=== PATIENT | male | born 1980 | race Caucasian/White ===

== ENCOUNTER 2023-05-15 18:38 | Emergency (ER) | payer OTHER, SELFPAY ==
[2023-05-15 18:42] VITALS: BP 155/75
[2023-05-15] MEDS: VIBRAMYCIN 100 MG PO (21:06)
--- NOTE | 2023-05-15 21:21 | ED.SKININJ ---
HPI-Injury
General
Chief Complaint: Skin Surface Trauma
Source: patient
Exam Limitations: none
Time Seen by Provider: 05/15/23 20:14
Nursing documentation reviewed up to this point in time: agreed with
Travel History
Have you had any contact with someone who has COVID-19?: No
Do you have any symptoms of coronavirus? Fever > 100 degrees, chills, cough, shortness of breath, sore throat, loss of taste or smell, muscle aches, or headache?: No
History of Present Illness-Injury
Is this injury a work related problem?: No
Is pt an associate of [facility]?: No
Initial Injury comments:
Patient to ED to r/o FB to right index finger and left forearm. States 3 days ago he was chopping wood. Today he noticed swelling to proximal right index finger, abrasion to left forearm. Brought self to ED for eval.
Past History
Past History
ED Past Medical History: HTN and NIDDM
ED Past Surgical History: Tonsilectomy
Social History
Tobacco: Non-smoker
Alcohol: None
Drug: None
Personal:
Living: with family
Employment: Employed
Review of Systems
Review of Systems
Allergies reviewed?: Yes
All Other Systems: ROS reviewed and negative except as documented in HPI and ROS
Constitutional: Reports no symptoms
EENT: Reports no symptoms
Respiratory: Reports no symptoms
Cardiac: Reports no symptoms
ABD/GI: Reports no symptoms
Musculoskeletal: Reports no symptoms
Skin: Reports no symptoms (swelling rigth proximal index finger. abrasion left forerarm)
Neurological: Reports no symptoms
Psychiatric: Reports no symptoms
Skin Exam
Foreign Body
Left Forearm:
Foreign body is: deep
Foreign body can be visualized?: No
Right Proximal Second Finger:
Foreign body is: deep
Foreign body can be visualized?: No
Phy Exam
General Physical Exam
General Presentation: well appearing and no apparent distress
General age: appears stated age
General Skin: warm and dry
General Habitus: normal
Musculoskeletal Exam
Musculoskeletal Exam: full ROM and neuro vasc intact
Skin Exam
Skin Exam: normal color, warm/dry and no rash
Psychiatric Exam
Psychiatric Exam: normal mood/affect
Course
Orders/Labs/Results
Orders:
Orders
05/15/23 18:48
Hand, Right 3 View [CR Hand - Right Min 3 Views] Urgent
Comment: pt concerned for foreign body
Reason For Exam: swelling and pain
05/15/23 18:49
Forearm, Left 2 View [CR Forearm - Left 2 View] Urgent
Comment: possible foreign body.
Reason For Exam: pain and swelling
05/15/23 20:29
Doxycycline [Vibramycin] 100 mg PO NOW STA
Vital Signs
Initial and Last Documented VS:
Initial Vital Signs
Temp Pulse Resp BP Pulse Ox
98.9 F 78 20 155/75 99
05/15/23 18:42 05/15/23 18:42 05/15/23 18:42 05/15/23 18:42 05/15/23 18:42
Last Documented Vital Signs
Temp Pulse Resp BP Pulse Ox
98.9 F 78 20 155/75 99
05/15/23 18:42 05/15/23 18:42 05/15/23 18:42 05/15/23 18:42 05/15/23 18:42
*Radiology
Radiology exam reviewed: radiology read reviewed
*Pulse Oximetry
Patient hypoxic: no
*Critical Care Note
Total Time (30-74mins, 75-104mins- exclusive of procedures): Not Applicable
Update Note
Update Note:
Xrays reviewed. Foreign bodies noted to left foream and right index finger, both occurred 3 days ago. Finger foreign body is deep, recommend evaluation by ortho for removal. This was explained to patient. He was given name and number of ortho
for follow up. Given instruction on s/s to return to ED.
ED Attending Note
-
Portions of this chart may have been created with voice recognition software.� Occasional wrong word or��sound alike� substitutions may have occurred due to the inherent limitations of voice recognition software.
Discharge Plan
Departure
Patient Disposition: Home (Routine Discharge)
Date of Disposition: 05/15/23
Time of Disposition: 20:30
Patient with high blood pressure during this ER visit?: No
Condition: Good
Covid-19: Not Applicable
Discharge Problem:
Foreign body in skin
Instructions: Foreign Body in Skin (DC)
Prescriptions:
New
doxycycline hyclate 100 mg tablet
100 mg PO BID Qty: 14 0RF
No Action
ciprofloxacin-dexamethasone 0.3-0.1 % drops,suspension
4 drp otic (ear) BID 7 Days Qty: 7.5 0RF
Referrals:
West Jaquez MD [Active] - Tomorrow
Interventions
Interventions:
ED-Skin Assessment Last Done: 05/15/23 21:10
== END 2023-05-15 21:15 | disposition home or self-care (01) ==
LOC: EMR 18:38
PROVIDERS: EMERGENCY PHYSICIAN Emergency Medicine; FAMILY PHYSICIAN Internal Medicine
DX: S60.450A Superficial foreign body of right index finger, initial encounter (principal); S50.852A Superficial foreign body of left forearm, initial encounter; W45.8XXA Other foreign body or object entering through skin, initial encounter; R22.31 Localized swelling, mass and lump, right upper limb; S60.410A Abrasion of right index finger, initial encounter; S50.812A Abrasion of left forearm, initial encounter; I10 Essential (primary) hypertension; E11.9 Type 2 diabetes mellitus without complications
CPT/HCPCS: 99283; 73090; 73130

== ENCOUNTER 2024-01-01 15:27 | Emergency (ER) | payer OTHER, SELFPAY ==
[2024-01-01 15:30] VITALS: BP 168/94
[2024-01-01 15:53] LABS: % Basophils 0.4 % (0-2); % Eosinophils 1.5 % (0-6); % Immature Granulocytes 0.4 % (0-0.5); % Lymphocytes 21.6 % (20.5-51.1); % Monocytes 8.8 % (1.7-9.3); % Neutrophils 67.3 % (42.2-75.2); Absolute Basophils 0.1 10^3/uL (0-0.2); Absolute Eosinophils 0.2 10^3/uL (0-0.7); Absolute Immature Granulocytes 0.1 10^3/uL (0-0.05); Absolute Monocytes 1.2 10^3/uL (0.1-0.6); Absolute Neutrophils 9.2 10^3/uL (1.4-6.5); Hematocrit 43.2 % (39.0-52.0); Hemoglobin 14.8 g/dL (13.0-18.0); Mean Corp Hgb Conc. 34.3 g/dL (33.0-37.0); Mean Corpuscular Hgb 26.2 pg (27.0-31.0); Mean Corpuscular Volume 76.5 fL (80.0-94.0); Mean Platelet Volume 10.5 fL (7.4-10.4); Nucleated Red Blood Cells % 0 % (-); Platelet Count 233 10^3/uL (130-400); Red Blood Cell Count 5.65 10^6/uL (4.70-6.10); Red Cell Dist. Width 13.9 % (11.5-14.5); White Blood Cell Count 13.7 10^3/uL (4.8-10.8)
--- NOTE | 2024-01-01 15:55 | ED.GENMED ---
History of Present Illness
General
Chief Complaint: Flank Pain
Source: patient
Time Seen by Provider: 01/01/24 15:46
History of Present Illness
History of Present Illness:
43yoM with a history of hypertension, obesity, and depression presenting for evaluation of left flank pain. He woke up this morning with a headache and a stomachache. He also noticed that his urine appeared darker than usual. Around 1:30pm this
afternoon, he had an abrupt onset of severe pain in his L flank region. Pain radiates to the LLQ and L groin. Pain is associated with nausea and vomiting. He has vomited 6-7x within the past hour. He also reports cold sweats but denies any fevers.
No prior history of similar symptoms. No prior history of kidney stones.
Past History
Past History
ED Past Medical History: HTN and NIDDM
ED Past Surgical History: Tonsilectomy
Social History
Tobacco: Non-smoker
Alcohol: None
Drug: None
Personal:
Living: with family
Employment: Employed
Phy Exam
Physical Exam
Physical Exam:
Appears uncomfortable due to pain. Non-toxic
General Physical Exam
General Presentation: mild distress
General age: appears stated age
General Skin: warm and dry
General Habitus: normal
General Mental: alert
ENT Exam
ENT Exam: normocephalic
Pulmonary Exam
Pulmonary Exam: no respiratory distress
Gastrointestinal Exam
Gastrointestinal Exam: non tender, soft, non distended and no cva tenderness
Neurological Exam
Neurological Exam: alert
[place] Coma Scale
Eye Opening: Spontaneous
Verbal Response: Oriented
Motor Response: Obeys Commands
GCS Total Score: 15
Skin Exam
Skin Exam: normal color and warm/dry
Psychiatric Exam
Psychiatric Exam: normal mood/affect
Course
Orders/Labs/Results
Orders:
Orders
01/01/24 15:37
Comprehensive Metabolic Panel Urgent
Lipase Urgent
01/01/24 15:38
Complete Blood Count/With Diff Urgent
01/01/24 15:53
CT Abd/pel Without Iv Or Oral Urgent
Comment:
Reason For Exam: L flank pain
0.9% Sodium Chloride 1000 ml [Nss] 1,000 ml IV BOLUS
HYDROmorphone [Dilaudid] 1 mg IV NOW STA
Ketorolac [Toradol] 15 mg IV NOW STA
Ondansetron Injectable [Zofran] 4 mg IV NOW STA
01/01/24 18:01
HYDROmorphone [Dilaudid] 1 mg IV NOW STA
Ketorolac [Toradol] 15 mg IV NOW STA
Ondansetron Injectable [Zofran] 4 mg IV NOW STA
01/01/24 18:24
Urinalysis Reflex To Culture Urgent
Date Specimen was Collected: 01/01/24
Time Specimen was Collected: 15:30
Urine Microscopic Reflex Cult Urgent
Urine Culture Urgent
PRETTY Source: U
Specimen Description:
Date Specimen was Collected: 01/01/24
Time Specimen was Collected: 15:30
01/01/24 19:36
Tamsulosin [Flomax] 0.4 mg PO NOW STA
Abnormal Lab Results
01/01/24 01/01/24 01/01/24
15:37 15:38 18:24
WBC 13.7 H 10^3/uL
(4.8-10.8)
MCV 76.5 L fL
(80.0-94.0)
MCH 26.2 L pg
(27.0-31.0)
MPV 10.5 H fL
(7.4-10.4)
Abs Immat Gran (auto) 0.1 H 10^3/uL
(0-0.05)
Absolute Neuts (auto) 9.2 H 10^3/uL
(1.4-6.5)
Absolute Monos (auto) 1.2 H 10^3/uL
(0.1-0.6)
Creatinine 0.6 L mg/dL
(0.7-1.3)
Glucose 116 H mg/dl
(70-99)
ALT 73 H U/L
(0-50)
Urine Ketones Trace A
(Negative)
Ur Occult Blood Reflex 4+ A
(Negative)
Leukocyte Esterase Rfl Trace A
(Negative)
Urine RBC >100 A /HPF
(0-2)
Urine Bacteria (Reflex) Moderate A
(Negative)
Urine Yeast Many A
(Negative)
Urine Albumin (Reflex) 1+ A
(Neg - Trace)
01/01/24 15:38
01/01/24 15:37
Vital Signs
Initial and Last Documented VS:
Initial Vital Signs
Temp Pulse Resp BP Pulse Ox
97.8 F 88 16 168/94 96
01/01/24 15:30 01/01/24 15:30 01/01/24 15:30 01/01/24 15:30 01/01/24 15:30
Last Documented Vital Signs
Temp Pulse Resp BP Pulse Ox
97.8 F 72 16 125/68 98
01/01/24 15:30 01/01/24 19:14 01/01/24 19:14 01/01/24 19:14 01/01/24 19:14
MDM/Problems Addressed
Differential Diagnosis Includes:
43yoM here with L flank pain. Abrupt in onset and severe. Radiates to LLQ/L groin. +N/v. He is hypertensive with otherwise normal vital signs. He appears uncomfortable but is nontoxic. No reproducible abdominal or CVA tenderness on exam.
Differential diagnosis includes but is not limited to: Kidney stone, UTI, pyelonephritis, diverticulitis, doubt but consider AAA
Initial ED plan: Abdominal labs obtained in triage. Will check UA and CT abdomen. IV Zofran, Toradol, Dilaudid, and fluid bolus for symptoms.
*Critical Care Note
Total Time (30-74mins, 75-104mins- exclusive of procedures): Not Applicable
Update Note
Update Note:
Labs reveal a leukocytosis with a white count of 13.7. Suspect this is reactive secondary to vomiting. Renal function is stable. CT shows a 6 mm proximal left ureteral stone with mild hydronephrosis. No overt signs of infection on urinalysis.
Pain is controlled on reassessment. No indication for hospitalization. Discussed case with on-call urologist to try to expedite outpatient follow-up. Urology recommends that patient call the office tomorrow morning at 8 AM to facilitate this.
Neurology also recommending discharge with prescriptions for ketorolac and Flomax. Supportive care discussed with patient including hydration and urine straining. Prescriptions given for Toradol, Zofran, Flomax, and oxycodone for breakthrough
pain. Discussed importance of close outpatient follow-up with urology. Strict ED return precautions discussed including uncontrolled pain/vomiting and fevers. Patient expressed understanding this agreeable to plan. He was discharged in stable
condition.
ED Attending Note
-
Portions of this chart may have been created with voice recognition software.� Occasional wrong word or��sound alike� substitutions may have occurred due to the inherent limitations of voice recognition software.
Discharge Plan
Departure
Patient Disposition: Home (Routine Discharge)
Date of Disposition: 01/01/24
Time of Disposition: 19:36
Patient with high blood pressure during this ER visit?: No
Discharge Problem:
Left ureteral stone
Instructions: Kidney Stones (DC), How to Strain Your Urine
Prescriptions:
New
ondansetron 4 mg tablet,disintegrating
4 mg PO Q6H PRN (Reason: nausea and vomiting) Qty: 20 0RF
ketorolac 10 mg tablet
20 mg PO Q6H PRN (Reason: pain) Qty: 30 0RF
oxycodone 5 mg tablet
5 mg PO Q6H PRN (Reason: Pain) Qty: 12 0RF
tamsulosin [Flomax] 0.4 mg capsule
0.4 mg PO HS Qty: 10 0RF
No Action
ciprofloxacin-dexamethasone 0.3-0.1 % drops,suspension
4 drp otic (ear) BID 7 Days Qty: 7.5 0RF
doxycycline hyclate 100 mg tablet
100 mg PO BID Qty: 14 0RF
Referrals:
Loc Herrera MD [Active] -
Bora Christianson DO [Family Provider] -
Activity Restrictions/Additional Instructions:
Drink plenty of fluids. Strain your urine and take Flomax until stone has passed.
Take Toradol as prescribed. You may also take Tylenol 650mg every 6 hours as needed for pain. Take oxycodone only as needed for severe breakthrough pain.
Call the urology office tomorrow morning at 8am to schedule a follow-up appointment.
Return to the ER with any worsening symptoms, uncontrolled pain/vomiting, or fevers.
Interventions
Interventions:
*Risk Screen - Suicide Last Done: 01/01/24 16:10
*General Assessment Last Done: 01/01/24 16:10
*Neglect/Abuse Screening Last Done: 01/01/24 16:10
ED- Fall Risk Assessment Last Done: 01/01/24 16:10
*ED COVID-19 Vaccine History Last Done: 01/01/24 16:10
*Nursing Disposition Last Done: 01/01/24 19:50
RP-Ocmbpz-Vyyvzmpajb Assessment Last Done: 01/01/24 16:10
ED-Male Genitourinary Assessment Last Done: 01/01/24 16:10
Discharge Date and Time
Discharge Date/Time: 01/01/24 19:51
Print Language: [id number]
[2024-01-01 16:04] LABS: ALT (SGPT) 73 U/L (0-50); AST (SGOT) 56 U/L (17-59); Alkaline Phosphatase 106 U/L (38-126); Blood Urea Nitrogen 14 mg/dl (9-20); Calcium 10.1 mg/dl (8.4-10.2); Carbon Dioxide 28 mmol/L (22-30); Chloride 100 mmol/L (98-107); Glucose 116 mg/dl (70-99); Lipase 118 U/L (23-300); Potassium 3.9 mmol/L (3.5-5.1); Sodium 143 mmol/L (135-145); Total Bilirubin 0.2 mg/dl (0.2-1.3); Total Protein 8.2 g/dl (6.3-8.2); eGFR > 60.00
[2024-01-01] MEDS: TORADOL 15 MG IV ×2 (16:07→18:26)
[2024-01-01] MEDS: ZOFRAN 4 MG IV ×2 (16:08→18:27)
[2024-01-01] MEDS: DILAUDID 1 MG IV ×3 (16:08→18:26)
[2024-01-01] MEDS: NSS 1000 IV (16:08)
[2024-01-01 16:10] VITALS: BMI 48.1
[2024-01-01 18:36] LABS: Urine Albumin 1+ (Neg - Trace); Urine Bilirubin Negative (Negative); Urine Character Very Cloudy (Clear); Urine Color Amber; Urine Glucose Negative (Negative); Urine Ketone Trace (Negative); Urine Leukocyte Trace (Negative); Urine Nitrite Negative (Negative); Urine Occult Blood 4+ (Negative); Urine Specific Gravity 1.025 (<1.030); Urine Urobilinogen Negative (Neg - 1+)
[2024-01-01 18:43] LABS: Urine Red Blood Cell >100 /HPF (0-2); Urine Squamous Cell 0-2 /LPF (Few)
[2024-01-01 18:45] LABS: Urine Bacteria Moderate (Negative); Urine Mucus Few; Urine White Cell 0-2 /HPF (0-5)
[2024-01-01 18:48] LABS: Urine Yeast Many (Negative)
[2024-01-01 19:14] VITALS: BP 125/68
[2024-01-01] MEDS: FLOMAX 0.4 MG PO (19:42)
== END 2024-01-01 19:51 | disposition home or self-care (01) ==
LOC: EMR 15:27
PROVIDERS: Student in an Organized Health Care Education/Training Program; EMERGENCY PHYSICIAN Emergency Medicine; FAMILY PHYSICIAN Family Medicine
DX: N13.2 Hydronephrosis with renal and ureteral calculous obstruction (principal); I10 Essential (primary) hypertension; F32.A Depression, unspecified
CPT/HCPCS: 99284; 96374; 96375 ×2; 96361; 96376 ×3; 74176; 80053; 81003; 81015; 83690; 85025; 87086

== ENCOUNTER → 2024-02-04 17:38 | Outpatient (REF) | payer OTHER, SELFPAY | LOC: RAD 17:38 | PROVIDERS: ATTENDING PHYSICIAN Specialist; FAMILY PHYSICIAN Internal Medicine | DX: N13.2 Hydronephrosis with renal and ureteral calculous obstruction (principal) | CPT/HCPCS: 74018 ==